=== PATIENT | female | born 1980 | race Caucasian/White ===

== ENCOUNTER 2019-10-26 09:48 | Day surgery (SDC) | payer BC ==
[2019-10-24 11:30] VITALS: BMI 24.0
[~2019-10-26 09:48] MED LIST: LACTATED RINGERS 1,000 ML IV SCH; LIDOCAINE 1% (10MG/ML) FOR IV START INTRADERMA PRN
[2019-10-26 10:19] VITALS: RESP 16; TEMP 97.8
[2019-10-26] MEDS ORDERED: LIDOCAINE 1% INJ 10MG/ML (20 ML MDV) ONE (10:59)
[2019-10-26] MEDS ORDERED: PROPOFOL 10 MG/ML 20 ML VIAL IV ONE (10:59)
--- NOTE | 2019-10-26 11:17 | P.PCN ---
Date of Procedure: 10/26/19 Procedure(s) Performed: BRIEF HISTORY: Patient is a 39-year-old pleasant female, scheduled for an elective colonoscopy as a part of evaluation of chronic diarrhea for the last several months duration. She went to the ER with worsening diarrhea in September 2019 and a CAT scan done that showed evidence of diffuse colitis. She is hence scheduled for colonoscopy to evaluate further and rule out inflammatory bowel disease. PROCEDURE PERFORMED: Colonoscopy with random biopsies . PREOPERATIVE DIAGNOSIS: chronic diarrhea. IV sedation per Anesthesia. PROCEDURE: After informed consent was obtained, the patient, was brought into the endoscopy unit. IV sedation was administered by Anesthesia under continuous monitoring. Digital rectal examination was normal. Initially the Olympus CF-160 flexible video colonoscope was then inserted in the rectum, gradually advanced into the cecum without any difficulty. Careful examination was performed as the scope was gradually being withdrawn. Ileocecal valve and the appendiceal orifice were visualized and appeared normal. Prep was excellent. terminal ileum appeared normal. 20 cm visualized. Mucosa of the cecum, ascending colon, transverse colon, descending colon, sigmoid colon, and rectum appeared normal. random biopsies were done from ascending and descending colon to rule out microscopic/collagenous colitis. Retroflexion was performed in the rectum and no lesions were seen. The patient tolerated the procedure well. IMPRESSION: Normal-appearing colon from rectum to cecum with no evidence of colitis or colorectal neoplasia . Normal-appearing terminal ileum. RECOMMENDATIONS: Findings of this examination were discussed with the patient as well as a family. She was advised to follow with the biopsy results and she'll be seen in office in a week..
[2019-10-26 11:46] VITALS: BP 100/62; PULSE 62
== END 2019-10-26 12:07 | disposition home or self-care (01) ==
LOC: ORWHC2ENDO 09:48
PROVIDERS: ATTEND Internal Medicine Gastroenterology
DX: K52.9 Noninfective gastroenteritis and colitis, unspecified (principal); Z88.0 Allergy status to penicillin; F17.210 Nicotine dependence, cigarettes, uncomplicated; M19.90 Unspecified osteoarthritis, unspecified site
CPT/HCPCS: 81025; 88305; 45380; J2001; J2704